=== PATIENT | male | born 1975 | race Two or more races ===

== ENCOUNTER → 2017-11-12 | Outpatient (CLI) | payer OTHER | END | disposition home or self-care (01) | LOC: RAD 15:24 | PROVIDERS: ATTEND Orthopaedic Surgery | DX: S92.355A Nondisplaced fracture of fifth metatarsal bone, left foot, initial encounter for closed fracture (principal); X58.XXXA Exposure to other specified factors, initial encounter; Y93.89 Activity, other specified; Y92.89 Other specified places as the place of occurrence of the external cause; Y99.8 Other external cause status ==